=== PATIENT | female | born 1960 | race Caucasian/White ===

== ENCOUNTER 2017-06-22 11:53 | Day surgery (SDC) | payer BC ==
[2017-06-22] MEDS ORDERED: PROPOFOL 40 ML (17:30)
[2017-06-22] MEDS ORDERED: LIDOCAINE 2% (SDV) 5 ML INJ (17:30)
[2017-06-22] MEDS ORDERED: MIDAZOLAM 1 MG/ML 2 ML INJ (17:30)
== END 2017-06-22 17:51 | disposition home or self-care (01) ==
LOC: GIL 11:53
DX: Z12.11 Encounter for screening for malignant neoplasm of colon (principal); K64.8 Other hemorrhoids; K29.70 Gastritis, unspecified, without bleeding; K20.9 Esophagitis, unspecified; K44.9 Diaphragmatic hernia without obstruction or gangrene; I10 Essential (primary) hypertension
CPT/HCPCS: 43239; 88305